=== PATIENT | female | born 2000 | race Two or more races ===

== ENCOUNTER 2024-05-21 18:17 | Emergency (ER) | payer OTHER ==
[~2024-05-21] VITALS: Ht 157.5 cm; Wt 53.6 kg
[2024-05-21 18:20] VITALS: TEMP 101.8
[2024-05-21] MEDS ORDERED: 0.9% SODIUM CHLORIDE 10 ML SYRINGE IVP PRN (18:30)
[2024-05-21 18:45] LABS: COVID AG,FIA SOURCE NASAL SWAB
[2024-05-21 18:56] LABS: BASOPHILS % (AUTO) 0.4 % (0.0-2.0); EOSINOPHILS % (AUTO) 0.7 % (1.0-6.0); HEMATOCRIT 38.8 % (36-46); LYMPHOCYTES # (AUTO) 0.7 K/uL (1.0-4.8); LYMPHOCYTES % (AUTO) 7.3 % (22.0-44.0); MEAN CORPUSCULAR HEMOGLOBIN 29.2 pg (26.0-34.0); MEAN CORPUSCULAR HGB CONC 33.6 G/dL (31.0-37.0); MEAN CORPUSCULAR VOLUME 87 fL (80-100); MONOCYTES # (AUTO) 0.7 K/uL (0.1-1.0); MONOCYTES % (AUTO) 6.8 % (2.0-9.0); NEUTROPHILS # (AUTO) 8.3 K/uL (1.8-7.7); NEUTROPHILS % (AUTO) 84.8 % (40.0-70.0); PLATELET COUNT (AUTO) 228 K/uL (150-450); RED BLOOD CELL COUNT(AUTO) 4.45 MIL/uL (4.00-5.20); RED CELL DISTRIBUTION WIDTH 13.4 % (11.5-14.5); WHITE BLOOD COUNT (AUTO) 9.8 K/uL (4.5-11.0)
[2024-05-21] MEDS ORDERED: ACETAMINOPHEN 500 MG TABLET ONE (18:58)
[2024-05-21 18:59] LABS: APPEARANCE,URINE HAZY (CLEAR); BILIRUBIN,URINE NEGATIVE (NEGATIVE); COLOR,URINE LIGHT YELLOW (YELLOW); GLUCOSE, URINE (UA) NEGATIVE (NEGATIVE); KETONES,URINE NEGATIVE (NEGATIVE); LEUKOCYTE ESTERASE ,URINE LARGE (NEGATIVE); NITRATE,URINE NEGATIVE (NEGATIVE); OCCULT BLOOD,URINE TRACE (NEGATIVE); PH,URINE 6.5 (5.0-8.0); PROTEIN,URINE TRACE mg/dL (NEGATIVE); SPECIFIC GRAVITIY, URINE 1.019 (1.003-1.030); UROBILINOGEN,URINE <=1.0 mg/dL (<=1.0)
[2024-05-21] MEDS: ACETAMINOPHEN 500 MG TABLET PO ONE (19:02)
[2024-05-21 19:03] LABS: ANION GAP 12 mmol/L (8-16); CALCIUM, TOTAL 9.2 mg/dL (8.8-10.5); CARBON DIOXIDE 22 mmol/L (22-29); CHLORIDE 100 mmol/L (98-107); CREATININE 0.77 mg/dL (0.60-1.30); GLOMERULAR FILTR. RATE CALC > 60 mL/min (>60); GLUCOSE,RANDOM 129 mg/dL (70-110); POTASSIUM 3.7 mmol/L (3.5-5.1); SODIUM SERUM 134 mmol/L (136-145); UREA NITROGEN, BLOOD 8 mg/dL (7-18)
[2024-05-21] MEDS: SODIUM CHLORIDE 0.9% 1,600 ML IV ONE (19:03)
[2024-05-21 19:05] LABS: PROTHROMBIN TIME 10.6 SEC (9.4-11.6)
[2024-05-21 19:08] LABS: INFLUENZA TYPE A NEGATIVE FOR TYPE A (NEGATIVE); INFLUENZA TYPE B NEGATIVE FOR TYPE B (NEGATIVE)
[2024-05-21 19:13] LABS: BACTERIA,URINE Many /HPF (None Seen); SQUAMOUS EPITHELIAL CELL,UR Many /LPF (None Seen)
[2024-05-21 19:15] LABS: SARS-COV2 (COVID) ANTIGEN,FIA Positive (Negative)
[2024-05-21 19:16] LABS: LACTIC ACID 2.3 mmol/L (0.4-2.0)
[2024-05-21] MEDS: CefTRIAXone 1 GM/DEXTROSE 50 ML IV ONE (19:32)
[2024-05-21] MEDS: KETOROLAC TROMETHAMINE 30 MG/ML VIAL IVP ONE (19:32)
[2024-05-21] MEDS ORDERED: CEPH-558 PO (21:40)
[2024-05-21 22:16] VITALS: BP 104/62; PULSE 92; RESP 18
== END 2024-05-21 22:17 | disposition home or self-care (01) ==
LOC: EMS 18:17
DX: U07.1 COVID-19 (principal); J06.9 Acute upper respiratory infection, unspecified
CPT/HCPCS: 99285; 96365; 71045; 96375; 87426; 80048; 81001; 83605; 85025; 85610; 87040; 87804; 36415; 87086; 87186; 93005; 84145; J0696; J1885; J7030

== ENCOUNTER 2025-03-18 17:14 | Emergency (ER) | payer OTHER ==
[~2025-03-18] VITALS: Ht 157.5 cm; Wt 61.4 kg
[~2025-03-18 17:14] MED LIST: CEPH-558 PO
[2025-03-18 17:23] VITALS: TEMP 98.1
[2025-03-18 22:04] VITALS: BP 122/77; PULSE 75; RESP 20; O2SAT 100
[2025-03-18 22:41] LABS: BASOPHILS % (AUTO) 0.5 % (0.0-2.0); EOSINOPHILS % (AUTO) 1.8 % (1.0-6.0); HEMATOCRIT 36.9 % (36-46); HEMOGLOBIN 12.8 g/dL (12.0-16.0); LYMPHOCYTES # (AUTO) 3.2 K/uL (1.0-4.8); LYMPHOCYTES % (AUTO) 34.5 % (22.0-44.0); MEAN CORPUSCULAR HEMOGLOBIN 29.6 pg (26.0-34.0); MEAN CORPUSCULAR HGB CONC 34.6 G/dL (31.0-37.0); MEAN CORPUSCULAR VOLUME 86 fL (80-100); MONOCYTES % (AUTO) 11.1 % (2.0-9.0); NEUTROPHILS # (AUTO) 4.9 K/uL (1.8-7.7); NEUTROPHILS % (AUTO) 52.1 % (40.0-70.0); PLATELET COUNT (AUTO) 252 K/uL (150-450); RED BLOOD CELL COUNT(AUTO) 4.31 MIL/uL (4.00-5.20); RED CELL DISTRIBUTION WIDTH 13.8 % (11.5-14.5); WHITE BLOOD COUNT (AUTO) 9.3 K/uL (4.5-11.0)
[2025-03-18 22:51] LABS: ANION GAP 6 mmol/L (8-16); CALCIUM, TOTAL 9.1 mg/dL (8.8-10.5); CARBON DIOXIDE 28 mmol/L (22-29); CHLORIDE 103 mmol/L (98-107); CREATININE 0.67 mg/dL (0.60-1.30); GLOMERULAR FILTR. RATE CALC > 60 mL/min (>60); GLUCOSE,RANDOM 116 mg/dL (70-110); POTASSIUM 3.7 mmol/L (3.5-5.1); SODIUM SERUM 137 mmol/L (136-145); UREA NITROGEN, BLOOD 13 mg/dL (7-18)
[2025-03-18 23:01] LABS: TROPONIN I-HIGH SENSITIVITY 4 ng/L (<51)
== END 2025-03-18 23:45 | disposition home or self-care (01) ==
LOC: EMS 17:14
DX: R20.2 Paresthesia of skin (principal)
CPT/HCPCS: 80048; 83735; 84484; 84703; 85025; 93005; 99284

== ENCOUNTER 2025-05-21 21:03 | Emergency (ER) | payer OTHER ==
[~2025-05-21] VITALS: Ht 157.5 cm; Wt 57.7 kg
[2025-05-21 21:13] VITALS: BP 119/58; PULSE 58; RESP 16; TEMP 98.2; O2SAT 100
[2025-05-22] MEDS ORDERED: VALA500T PO (00:39)
[2025-05-22] MEDS ORDERED: LIDO-57 TP (00:40)
[2025-05-22] MEDS ORDERED: TRAM50TA5 PO (00:40)
== END 2025-05-22 01:15 | disposition home or self-care (01) ==
LOC: EMS 21:05
DX: B02.9 Zoster without complications (principal)
CPT/HCPCS: 99283